=== PATIENT | male | born 1960 | race Caucasian/White ===

== ENCOUNTER 2018-06-14 00:05 | Day surgery (SDC) | payer OTHER ==
[~2018-06-14] VITALS: Ht 175.3 cm; Wt 77.6 kg
[~2018-06-14 00:05] MED LIST: ALB18R INH; FLUT1AER INH; LIDOCAINE/SOD BICARB 8.4% SYR ID ONE; NORMOSOL R SOLN(*) 1000 ML BAG 1,000 ML IV PRN
[2018-06-14 07:04] VITALS: BP 107/77
[2018-06-14] MEDS ORDERED: NORMOSOL R SOLN(*) 1000 ML BAG 1,000 ML IV PRN (07:20)
[2018-06-14] MEDS ORDERED: LIDOCAINE/SOD BICARB 8.4% SYR ID ONE (07:20)
[2018-06-14 08:45] VITALS: BP 89/58
[2018-06-14 09:00] VITALS: BP 96/61
[2018-06-14 09:19] VITALS: BP 105/84
[2018-06-14 09:21] VITALS: BP 118/84
--- NOTE | 2018-06-14 09:47 | NUR ---
0845- PT. RECEIVED FROM OR VIA STRETCHER WITH THE SIDE RAILS UP. PT. SLEEPING AND NOT RESPONSIVE TO COMMANDS. PT. HAS NO NOTED BLEEDING FROM THE RECTUM. SEE ADMISSION ASSESSMENT. 0857- PT. NOW AWAKE AND RETURNED TO ROOM AIR. PT. BROUGHT TO THE BEDSIDE. PT. GIVEN WATER. 0915- DISCHARGE INSTRUCTIONS GONE OVER WITH PT. AND . DR. DASH AT BEDSIDE. 0919- PT. STATES THAT HE IS READY TO GO HOME SO ORTHOSTATICS PREFROMED. 0925- PT. GETTING DRESSED. 0930- PT. IV TAKEN OUT AND PRESSURE DRESSING APPLIED. 0935- PT. ACCOMPANIED OUT TO VEHICLE BY MYSELF AND HIS . SEE DISCHARGE ASSESSMENT.
== END 2018-06-14 09:35 | disposition home or self-care (01) ==
LOC: OR 00:05
PROVIDERS: ATTEND Family Medicine
DX: Z12.11 Encounter for screening for malignant neoplasm of colon (principal)